=== PATIENT | female | born 1985 | race Caucasian/White ===

== ENCOUNTER 2016-12-09 03:26 | Inpatient (IN) | payer MEDICAID ==
[2016-12-09] VITALS (32 sets, daily range): BP systolic 9–117; BP diastolic 49–79; PULSE 56–83; TEMP 97.7–98.3
[~2016-12-09] VITALS: Ht 167.6 cm; Wt 85.0 kg
[~2016-12-09 03:26] MED LIST: BCP TD; PRENATAL1 TA1 PO
[2016-12-09 04:53] LABS: BASO % 0.4 % (0.0-2.0); EOS % 0.5 % (0-4.0); GRAN # 4.2 (1.4-6.5); GRAN % 54.5 % (42.2-75.2); HEMATOCRIT 38.5 % (37.0-47.0); HEMOGLOBIN 13.2 g/dl (12.5-16.0); LYMPH # 2.6 (1.2-3.4); LYMPH % 34.1 % (20.0-51.0); MEAN CELL VOLUME 91 fl (80.0-100.0); MEAN CORPUSCULAR HEMOGLOBIN 31 pg (27.0-31.0); MEAN CORPUSCULAR HGB CONC 34 g/dl (33.0-37.0); MEAN PLATELET VOLUME 9.2 fl (7.4-10.4); MONO # 0.8 (0.1-0.6); PLATELET COUNT 180 K/mm3 (130-400); RED BLOOD COUNT 4.21 M/mm3 (4.10-5.30); REDCELL DISTRIBUTION WIDTH-CV 12.4 % (11.5-14.5); WHITE BLOOD COUNT 7.6 K/mm3 (4.8-10.8)
[2016-12-09 13:00] LABS: HEMATOCRIT 37.9 % (37.0-47.0); HEMOGLOBIN 13.1 g/dl (12.5-16.0)
[2016-12-10] VITALS: BP 104/63; PULSE 62; TEMP 97.9
[2016-12-10 07:16] VITALS: BP 102/68; PULSE 70; TEMP 98.6
[2016-12-10] MEDS ORDERED: IBU800 M1 PO (08:29)
[2016-12-10] MEDS ORDERED: PERCOCET 325 MG1 TA2 PO (08:29)
[2016-12-10 15:04] VITALS: BP 105/66; PULSE 71; TEMP 98
== END 2016-12-10 16:20 | disposition home or self-care (01) | DRG 775 ==
LOC: LDRO 03:26 → OB 04:16 → LDR 04:16 → OB 13:30
PROVIDERS: Obstetrics & Gynecology
PROC: 10E0XZZ Delivery of Products of Conception, External Approach (ICD-10-PCS; principal; 2016-12-09)
PROC: 3E033VJ Introduction of Other Hormone into Peripheral Vein, Percutaneous Approach (ICD-10-PCS; 2016-12-09)
DX: O42.013 Preterm premature rupture of membranes, onset of labor within 24 hours of rupture, third trimester (principal); O99.824 Streptococcus B carrier state complicating childbirth; O77.0 Labor and delivery complicated by meconium in amniotic fluid; O69.81X0 Labor and delivery complicated by cord around neck, without compression, not applicable or unspecified; O48.0 Post-term pregnancy; Z3A.40 40 weeks gestation of pregnancy; Z37.0 Single live birth
CPT/HCPCS: J2210; J2405; J2540; J2590; J2791; J7120